=== PATIENT | female | born 1945 | race Caucasian/White ===

== ENCOUNTER 2019-12-31 15:06 | Emergency (ER) | payer MEDICAID ==
[~2019-12-31] VITALS: Ht 157.5 cm; Wt 68.9 kg
[2019-12-31 15:14] VITALS: BP_SYST 156
--- NOTE | 2019-12-31 15:15 | NUR ---
PATIENT TO ER #3
--- NOTE | 2019-12-31 15:16 | NUR ---
Patient presented to ER C/O facial laceration. Patient A&Ox4, ambulatory to ER, BIB daughter, patient [place] island[place] speaking only, daughter at BS for translation. Per daughter, patient states she missed a small step down at home, causing trip & fall. laceration 2 CM accross bridge of nose, oozing blood upon arrival, bilateral knee swelling with redness.
--- NOTE | 2019-12-31 15:30 | NUR ---
ER Dr. Zimmerman at bedside examining patient.
[2019-12-31] MEDS ORDERED: DIPH-TET-PERTUS Vaccine 0.5 ML VIAL (ADACEL) I.M. ONE (15:45)
[2019-12-31] MEDS ORDERED: KETOROLAC TROMETHAMINE 60 MG/2 ML VIAL IM ONE (15:45)
[2019-12-31 16:15] VITALS: BP_SYST 146
--- NOTE | 2019-12-31 16:15 | NUR ---
Patient given written and verbal discharge instructions and verbalizes understanding. ER MD discussed with patient the results and treatment provided. Patient in stable condition. ID arm band removed. Rx of norco & motrin given. Patient educated on pain management and to follow up with PMD. Pain Scale 5/10 tolerable for pt. Opportunity for questions provided and answered. Medication side effect fact sheet provided.
== END 2019-12-31 16:15 | disposition home or self-care (01) ==
LOC: SED 15:06
DX: S01.21XA Laceration without foreign body of nose, initial encounter (principal); I10 Essential (primary) hypertension; W18.09XA Striking against other object with subsequent fall, initial encounter; Y93.89 Activity, other specified; Y92.89 Other specified places as the place of occurrence of the external cause; Y99.8 Other external cause status
CPT/HCPCS: 12011; 90715; 90471; 96372; 99284; J1885